=== PATIENT | male | born 1970 | race Caucasian/White ===

== ENCOUNTER 2018-10-15 08:46 | Emergency (ER) | payer OTHER, BC ==
[~2018-10-15] VITALS: Ht 188 cm; Wt 124.5 kg
[~2018-10-15 08:46] MED LIST: CEFZIL500 MG PO; CEPHALEXIN500 M1 PO; CLARITIN D TAB1 TAB; NORCO 325 MG-51 TAB PO; VITAMIN D1000 IU PO; ZESTRIL 20MG TA20 MG PO
[2018-10-15 08:49] VITALS: TEMP 98
[2018-10-15] MEDS ORDERED: BLOOD PRESSURE MED (08:53)
[2018-10-15 09:13] LABS: BASO # 0.1 (0.0-0.2); BASO % 0.7 % (0.0-2.0); EOS # 0.1 (0.0-0.7); EOS % 1.2 % (0-4.0); GRAN # 7.6 (1.4-6.5); GRAN % 66.2 % (42.2-75.2); HEMATOCRIT 44.1 % (42.0-52.0); LYMPH # 2.7 (1.2-3.4); LYMPH % 23.6 % (20.0-51.0); MEAN CELL VOLUME 87 fl (80.0-100.0); MEAN CORPUSCULAR HEMOGLOBIN 30 pg (27.0-31.0); MEAN CORPUSCULAR HGB CONC 34 g/dl (33.0-37.0); MEAN PLATELET VOLUME 9.4 fl (7.4-10.4); MONO # 0.9 (0.1-0.6); PLATELET COUNT 306 K/mm3 (130-400); RED BLOOD COUNT 5.06 M/mm3 (4.20-5.60); REDCELL DISTRIBUTION WIDTH-CV 12.3 % (11.5-14.5)
[2018-10-15 09:25] LABS: ALANINE AMINOTRANSFERASE 45 U/L (21-72); ALKALINE PHOSPHATASE 69 U/L (50-136); ANION GAP 11 mmol/L (7-16); AST,SGOT 42 U/L (15-37); BILIRUBIN,TOTAL 0.5 mg/dL (0.0-1.0); BLOOD UREA NITROGEN 14 mg/dL (9-20); CARBON DIOXIDE 28 mmol/L (22-30); CHLORIDE 105 mmol/L (98-107); CREATININE, serum 0.83 (0.66-1.25); GLUCOSE 164 mg/dL (74-106); POTASSIUM 3.5 mmol/L (3.4-5.0); SODIUM 143 mmol/L (137-145); TOTAL PROTEIN 7.3 gm/dL (6.4-8.2)
[2018-10-15 09:31] LABS: COLLECTION METHOD CLEAN CATCH
[2018-10-15 09:37] LABS: C-REACTIVE PROTEIN < 0.5 mg/dL (0.0-0.9)
[2018-10-15 09:59] LABS: MUCOUS Present /lpf; PH 5 (5-8); SQUAMOUS EPITHELIAL None Seen /hpf; URINE APPEARANCE Turbid; URINE BACTERIA None Seen /hpf; URINE BILIRUBIN Negative (NEGATIVE); URINE BLOOD 3+ (NEGATIVE); URINE COLOR Red; URINE GLUCOSE Negative (NEGATIVE); URINE KETONE Negative (NEGATIVE); URINE LEUKOCYTE ESTERASE Negative (NEGATIVE); URINE NITRATE Negative (NEGATIVE); URINE PROTEIN(semi-quant) 2+ (NEGATIVE); URINE RBC >50 /hpf; URINE UROBILINOGEN Negative (NEGATIVE)
[2018-10-15] MEDS ORDERED: IBU800 M1 PO (10:14)
[2018-10-15] MEDS ORDERED: NORCO 325 MG-7.1 TAB PO (10:14)
[2018-10-15] MEDS ORDERED: ZOFRAN ODT4 MG PO (10:14)
[2018-10-15 11:16] VITALS: BP 116/61; PULSE 52
== END 2018-10-15 11:28 | disposition home or self-care (01) ==
LOC: COL.ER 08:46
PROVIDERS: Physician Assistant
DX: N20.0 Calculus of kidney (principal); I10 Essential (primary) hypertension; Z88.2 Allergy status to sulfonamides
CPT/HCPCS: J1170; J1885; J2405; J7030

== ENCOUNTER 2019-01-15 08:38 | Emergency (ER) | payer OTHER, BC ==
[~2019-01-15] VITALS: Ht 182.9 cm; Wt 127.3 kg
[~2019-01-15 08:38] MED LIST changes: +BLOOD PRESSURE MED; +IBU800 M1 PO; +NORCO 325 MG-7.1 TAB PO; +ZOFRAN ODT4 MG PO
[2019-01-15 08:44] VITALS: TEMP 96
[2019-01-15 09:41] LABS: COLLECTION METHOD CLEAN CATCH
[2019-01-15 09:44] LABS: BASO % 0.4 % (0.0-2.0); EOS % 0.4 % (0-4.0); GRAN # 7.9 (1.4-6.5); HEMATOCRIT 44.7 % (42.0-52.0); HEMOGLOBIN 14.9 g/dl (13.5-18.0); LYMPH # 1.8 (1.2-3.4); LYMPH % 17.4 % (20.0-51.0); MEAN CELL VOLUME 88 fl (80.0-100.0); MEAN CORPUSCULAR HEMOGLOBIN 29 pg (27.0-31.0); MEAN CORPUSCULAR HGB CONC 33 g/dl (33.0-37.0); MEAN PLATELET VOLUME 9.6 fl (7.4-10.4); MONO # 0.6 (0.1-0.6); MONO % 5.4 % (1.7-9.3); PLATELET COUNT 297 K/mm3 (130-400); RED BLOOD COUNT 5.09 M/mm3 (4.20-5.60); REDCELL DISTRIBUTION WIDTH-CV 12.4 % (11.5-14.5)
[2019-01-15 09:54] LABS: MUCOUS Present /lpf; PH 5 (5-8); SQUAMOUS EPITHELIAL None Seen /hpf; URINE APPEARANCE Turbid; URINE BACTERIA None Seen /hpf; URINE BILIRUBIN Negative (NEGATIVE); URINE BLOOD 1+ (NEGATIVE); URINE COLOR Red; URINE GLUCOSE Negative (NEGATIVE); URINE KETONE Negative (NEGATIVE); URINE LEUKOCYTE ESTERASE Negative (NEGATIVE); URINE NITRATE Positive (NEGATIVE); URINE PROTEIN(semi-quant) 1+ (NEGATIVE); URINE RBC None Seen /hpf
[2019-01-15 09:56] LABS: HYALINE CAST >12 /lpf
[2019-01-15 10:02] LABS: ALANINE AMINOTRANSFERASE 40 U/L (21-72); ALBUMIN 4.4 gm/dL (3.5-5.0); ALKALINE PHOSPHATASE 74 U/L (50-136); ANION GAP 14 mmol/L (7-16); AST,SGOT 36 U/L (15-37); BILIRUBIN,TOTAL 0.5 mg/dL (0.0-1.0); BLOOD UREA NITROGEN 14 mg/dL (9-20); C-REACTIVE PROTEIN < 0.5 mg/dL (0.0-0.9); CALCIUM 9.1 mg/dL (8.4-10.2); CARBON DIOXIDE 26 mmol/L (22-30); CHLORIDE 102 mmol/L (98-107); CREATININE, serum 0.87 (0.66-1.25); GLUCOSE 173 mg/dL (74-106); POTASSIUM 3.8 mmol/L (3.4-5.0); SODIUM 142 mmol/L (137-145); TOTAL PROTEIN 7.7 gm/dL (6.4-8.2)
[2019-01-15] MEDS ORDERED: PERCOCET 325 MG1 TA2 PO (10:20)
[2019-01-15 12:01] VITALS: BP 150/97; PULSE 69
== END 2019-01-15 12:02 | disposition home or self-care (01) ==
LOC: COL.ER 08:38
PROVIDERS: Physician Assistant
DX: N23 Unspecified renal colic (principal); I10 Essential (primary) hypertension; Z87.442 Personal history of urinary calculi; Z88.2 Allergy status to sulfonamides
CPT/HCPCS: J1170; J1885; J2405; J7030

== ENCOUNTER 2023-08-02 06:48 | Emergency (ER) | payer BC ==
[~2023-08-02] VITALS: Ht 188 cm; Wt 132.7 kg
[~2023-08-02 06:48] MED LIST changes: +PERCOCET 325 MG1 TA2 PO
[2023-08-02 06:55] VITALS: TEMP 97.2
[2023-08-02] MEDS ORDERED: Ketorolac 30 MG/ML VIAL IV ONE (07:15)
[2023-08-02] MEDS ORDERED: NS 1,000 ML IV ONE (07:15)
[2023-08-02] MEDS ORDERED: Morphine 4 MG/ML VIAL IV ONE (07:15)
[2023-08-02] MEDS ORDERED: Ondansetron 4 MG/2 ML VIAL IV ONE (07:15)
[2023-08-02 07:18] LABS: COLLECTION METHOD CLEAN CATCH
[2023-08-02 07:27] LABS: BASO # 0.1 K/mm3 (0.0-0.2); BASO % 0.4 % (0.0-2.0); EOS # 0.2 K/mm3 (0.0-0.7); EOS % 1.9 % (0.0-4.0); GRAN # 8.8 K/mm3 (1.4-6.5); GRAN % 72.3 % (42.2-75.2); HEMATOCRIT 40.9 % (42.0-52.0); HEMOGLOBIN 14.3 g/dl (13.5-18.0); LYMPH # 2.1 K/mm3 (1.2-3.4); MEAN CELL VOLUME 85 fl (80.0-100.0); MEAN CORPUSCULAR HEMOGLOBIN 30 pg (27-31); MEAN CORPUSCULAR HGB CONC 35 g/dl (33.0-37.0); MEAN PLATELET VOLUME 9.3 fl (7.4-10.4); MONO % 8.2 % (1.7-9.3); PLATELET COUNT 253 K/mm3 (130-400); RED BLOOD COUNT 4.81 M/mm3 (4.20-5.60); REDCELL DISTRIBUTION WIDTH-CV 12.5 % (11.5-14.5)
[2023-08-02 07:34] LABS: URINE APPEARANCE CLOUDY (CLEAR/HAZY); URINE BLOOD 2+ (NEGATIVE); URINE COLOR ORANGE (YELLOW); URINE GLUCOSE NEGATIVE (NEGATIVE); URINE KETONE NEGATIVE (NEGATIVE); URINE NITRATE POSITIVE (NEGATIVE); URINE PROTEIN(semi-quant) TRACE (NEGATIVE)
[2023-08-02 07:38] LABS: ALBUMIN 3.7 gm/dL (3.5-5.0); BILIRUBIN,TOTAL 0.6 mg/dL (0.2-1.2); C-REACTIVE PROTEIN 1.37 mg/dL (0.00-0.50); CALCIUM 9.3 mg/dL (8.4-10.2); CREATININE, serum 1.53 mg/dL (0.72-1.25); POTASSIUM 3.4 mmol/L (3.5-4.5); TOTAL PROTEIN 6.8 gm/dL (6.2-8.1)
[2023-08-02] MEDS ORDERED: LASIX 40MG TABL40 MG PO (08:03)
[2023-08-02] MEDS ORDERED: Iohexol 300 - 100 ML VIAL IV ONE (08:03)
[2023-08-02] MEDS ORDERED: NS 100 ML IV SCH (08:04)
[2023-08-02] MEDS ORDERED: Cefdinir 300 MG CAP PO ONE (09:00)
[2023-08-02] MEDS ORDERED: NAPROSYN500 MG PO (09:05)
[2023-08-02] MEDS ORDERED: ROXICODONE 55 MG/TAB PO (09:05)
[2023-08-02] MEDS ORDERED: ZOFRAN ODT4 MG PO (09:05)
[2023-08-02] MEDS ORDERED: OMNICEF 300MG300 MG PO (09:05)
[2023-08-02] MEDS ORDERED: FLOMAX 0.40.4 MG/CAP PO (09:05)
[2023-08-02 09:35] VITALS: BP 126/74; PULSE 50
== END 2023-08-02 09:35 | disposition home or self-care (01) ==
LOC: COL.ER 06:48
PROVIDERS: Emergency Medicine
DX: N13.2 Hydronephrosis with renal and ureteral calculous obstruction (principal); Z88.2 Allergy status to sulfonamides; Z91.040 Latex allergy status
CPT/HCPCS: J1885; J2270; J2405; J7030; Q9967

== ENCOUNTER 2023-11-18 08:50 | Day surgery (SDC) | payer BC ==
[~2023-11-18] VITALS: Ht 188 cm; Wt 129.5 kg
[~2023-11-18 08:50] MED LIST changes: +FLOMAX 0.40.4 MG/CAP PO; +LASIX 40MG TABL40 MG PO; +LR 1,000 ML IV SCH; +NAPROSYN500 MG PO; +OMNICEF 300MG300 MG PO; +Ondansetron 4 MG/2 ML VIAL IV PRN; +ROXICODONE 55 MG/TAB PO
[2023-11-18] MEDS ORDERED: CLARITIN 1010 MG/TAB PO (10:08)
[2023-11-18] MEDS ORDERED: WEGOVY0.25 MG/0. SQ (10:08)
[2023-11-18] MEDS ORDERED: COZAAR 50MG50 MG/TAB PO (10:09)
[2023-11-18 10:20] VITALS: BP 134/83; PULSE 55; TEMP 97.5
[2023-11-18 11:28] VITALS: BP 139/83; PULSE 56; TEMP 97.5
[2023-11-18 11:43] VITALS: BP 125/68; PULSE 58
[2023-11-18 11:58] VITALS: BP 123/66; PULSE 56
--- NOTE | 2023-11-18 12:15 | NUR ---
1128 RETURNS TO ROOM 3 PER CART. AWAKE, ALERT. RESP UNLABORED. AMBULATES TO RECLINER WITH STANDBY ASSIST. DENIES NAUSEA OR ABD PAIN. VITAL SIGNS OBTAINED. CALL LIGHT AT SIDE. IN ROOM 1135 TOLERATES PO JUICE AND PUDDING WITHOUT NAUSEA. DISCHARGE INSTRUCTIONS REVIEWED. PATIENT VERBALIZES UNDERSTANDING. COPY PROVIDED IN DISCHARGE FOLDER. CONVERSES WITH . AWAITING VISIT FROM 1155 DR. SOUZA HERE TO VISIT WITH PATIENT 1207 DRESSES SELF
== END 2023-11-18 12:15 | disposition home or self-care (01) ==
LOC: SDCO 08:50
DX: Z12.11 Encounter for screening for malignant neoplasm of colon (principal); D12.2 Benign neoplasm of ascending colon; K62.1 Rectal polyp; K64.0 First degree hemorrhoids; G47.33 Obstructive sleep apnea (adult) (pediatric)
CPT/HCPCS: J2704; J7120